=== PATIENT | female | born 1955 | race Caucasian/White ===

== ENCOUNTER 2024-01-17 10:21 | Outpatient (CLI) | payer MEDICARE, SELFPAY ==
--- NOTE | 2024-01-17 10:41 | ECG_ITS ---
Test Date: 2024-01-17 10:46:25 Measurements Intervals [place] Rate: 53 P: 30 AK: 144 QRS: -4 QRSD: 90 T: -8 QT: 404 QTc: 382 Interpretive Statements SINUS BRADYCARDIA POSSIBLE ANTERIOR MYOCARDIAL INFARCTION [30 ms Q WAVE IN V3/V4, OR R < 0.2 mV IN V4], PROBABLY OLD No previous ECG available for comparison Electronically Signed On 01-18-2024 15:49:54 CDT by Aram Williamson M.D.
== END 2024-01-17 10:22 | disposition home or self-care (01) ==
LOC: ANHSURGERY 10:26
PROVIDERS: PCP Family Medicine; Visit Provider Otolaryngology
DX: I10 Essential (primary) hypertension (principal)
CPT/HCPCS: 93005

== ENCOUNTER 2024-01-24 00:09 | Day surgery (SDC) | payer MEDICARE, SELFPAY ==
[2024-01-14 15:45] VITALS: BMI 27.2
--- NOTE | 2024-01-14 16:01 | PC.NURSE ---
Report to the Outpatient Waiting Room, entrance under the green pavilion located off [facility], at time __9:00AM on date ___01/24/24____. Planned Procedure Time: __11:00AM . Time changes happen often and if your time is changed the preop area will call you the afternoon before. - You and your visitor will be asked to self-screen and do not enter if you have any COVID symptoms. - A mask is optional within the hospital at this time. Patients may have clear liquids (water, carbonated beverages, clear teas, apple juice) until 3 hours prior to surgery with a maximum of 20 ounces. - No food from midnight until time of surgery. Take the following medications with a SIP of water the morning of surgery: ____NONE DO NOT STOP ANY OF YOUR OTHER PRESCRIPTION MEDICATIONS PRIOR TO SURGERY ?EXCEPT THE FOLLOWING Medications to discontinue per physician ___HOLD ALL VITAMINS/SUPPLEMENTS 3 DAYS PRE-OP PER ANESTHESIA Date to take last dose 01/20/24 Please no make-up, nail czech, hairspray, perfume, deodorant, or body powder the day of surgery. No jewelry (including any body piercings) or valuables the day of surgery, leave them at home. Please take a shower or bath the night before, or the morning of, surgery with an antibacterial soap. Wear comfortable, loose fitting clothing. - Jewelry must be removed prior to entering the operating room. Rings and piercings that are not removed may be cut off. - The hospital will not accept responsibility for valuables. - Please leave all valuables, including medications, at home the day of surgery. If you are going home after surgery, a licensed armored car driver must drive you home. - NO public transportation without another adult if you receive anesthesia. - We recommend that an adult stay with you for 24 hours following discharge. - We also recommend that you do not drive, make important decision, drink alcoholic beverages, or take any drugs that were not prescribed by your health care provider for at least 24 hours after your discharge time. Follow any additional instructions given to you from your surgeon. If you or anyone in your household have experienced Covid symptoms in the past week, please notify your surgeon or the nurse liaison at the phone number below for possible testing. Telephone instructions given to ____PATIENT and asked if any additional questions and then verbalized understanding. Patient advised to call surgeon office or pre surgery nurse liaison [phone] if any additional questions.
--- NOTE | 2024-01-23 08:13 | PM.IMHP ---
H&P: HPI History of Present Illness Date/Time: 01/23/24 08:13 Chief Complaint: Nasal polyps chronic sinusitis septal deviation turbinate hypertrophy Narrative: planned procedure Review of Systems Review of Systems: All systems reviewed & are unremarkable except as noted in HPI and below [facility] Past Medical History Medical History Bone spur (~2009) Carpal tunnel syndrome of left wrist (~1998) Carpal tunnel syndrome of left wrist (~2016) Carpal tunnel syndrome of right wrist (~1996) Hip replacement planned (~2014) Meniscal injury (~2011) Ulnar nerve injury (~2018) Surgical History Surgical History H/O: hysterectomy (~2002) Tubal ligation status (~1983) Family History Family History Father Malignant neoplasm of prostate Mother Diabetes mellitus Breast cancer Social History Social History Smoking status: Never smoker Alcohol intake: never Substance use: never Substance use type: does not use Do You Feel Safe in your Home?: Yes Lack of Transportation: No Lack of Food: Never True Current Housing: I Have Housing Concerned About Future Housing: No Difficulty Paying Gas/Electric Bills: No Currently Unemployed: No Education: Master's Degree or Higher Living arrangements: with family Additional living arrangements comments: [employer] Occupation/Education: retired Gender identity (if verbalized by the patient): Female Spiritual care concerns: No Meds Home Medications and Allergies Home Medications Medication Instructions Recorded Confirmed Type folic acid 1 mg tablet 1 mg PO DAILY 12/19/23 01/14/24 History lisinopril 20 mg tablet 20 mg PO HS 12/19/23 01/14/24 History multivitamin 1 tablet PO DAILY 12/19/23 01/14/24 History oxybutynin chloride 5 mg tablet 5 mg PO BID 12/19/23 01/14/24 History budesonide 0.25 mg/2 mL suspension 0.25 mg (2 mL) irrigation BID #120 12/20/23 01/14/24 Rx for nebulization mL lactobacillus combination no.9 4 4,000 mmu cells PO DAILY 12/20/23 01/14/24 History billion cell capsule (Adult 50 Plus Probiotic) methotrexate sodium 2.5 mg tablet 17 mg PO WEEKLY 01/14/24 01/14/24 History prednisone 5 mg tablet 5 mg PO . Daily #7 tabs 01/15/24 01/15/24 Rx Allergies Allergy/AdvReac Type Severity Reaction Status Date / Time celecoxib [From Celebrex] AdvReac Mild Rash Verified 01/14/24 15:41 Exam Narrative: chronic appearing sinuses septal deviation turbinate hypertrophy nasal polyps Assessment and Plan Assessment and plan (1) Nasal polyps: Code(s): J33.9 - Nasal polyp, unspecified Status: Acute Assessment and Plan: Plan OR for image guided endoscopic bilateral maxillary antrostomies total ethmoidectomies frontal sinusotomies right-sided sphenoidotomy endoscopic assisted septoplasty inferior turbinate reduction with outfracture bilaterally possible bilateral middle turbinectomies. Risks discussed bleeding infection damage to surrounding structures need further procedures change in vision total blindness damage to vision CSF leak brain brain damage postoperative bleeding infection related to any medical comorbidities. Septal perforation. Failure to resolve symptoms. Need for prolonged follow-up routine follow-up. Inherent risk of medications that will be prescribed inherent risk of narcotic use. Time off work time off school. Patient voiced understanding these risks and agreed. Also damage to any structure of the clavicles by myself. Damage to any structures during induction and maintenance of anesthesia including vocal cord paralysis. (2) Chronic sinusitis: Code(s): J32.9 - Chronic sinusitis, unspecified Status: Acute (3) Nasal septal deviation: Code(s): J34.2 -
[2024-01-24] VITALS (13 sets, daily range): BP systolic 133–191; BP diastolic 79–98; PULSE 56–101; RESP 12–18; TEMP 36.3; O2SAT 96–100
--- NOTE | 2024-01-24 07:15 | WPDHPUPDATE1 ---
History and Physical Update Update Date/Time: 01/24/24 07:15 History and Physical has been reviewed, including an updated exam of the patient. There are NO changes in the patient's condition. Risks, benefits, and alternatives have been discussed and questions answered. Patient agrees to proceed with procedure.
--- NOTE | 2024-01-24 09:46 | WPDANESEPPF ---
Anes - Initial Pre Proc Eval Procedure: Operation Date: 01/24/24 10:30 Proposed Procedures p Image Guided Endoscopic Bilateral Maxillary Antrostomy, Bilateral Total Ethmoidectomy, Bilateral Frontal Sinusotomy, Right Sided Sphenoidotomy, Bilateral Inferior Turbinate Reduction with Outfracture, Possible Bilateral Middle Turbinectomy - Ace Beltran MD s Endoscopic Assisted Septoplasty - Ace Beltran MD Date/Time: 01/24/24 09:46 Surgeon: Ace Beltran MD Pre Op Diagnosis: Chr Sinusitis, Septal Dev Patient Data Age: 68 Gender: F Height: 1.7 m Weight: 81.9 kg Last Vital Signs Temp 97.3 F L 01/24/24 09:34 Pulse 56 L 01/24/24 09:34 Resp 18 01/24/24 09:34 BP 166/98 H 01/24/24 09:34 Pulse Ox 100 01/24/24 09:34 O2 Del Method Room Air 01/24/24 09:34 Allergies Allergy/AdvReac Type Severity Reaction Status Date / Time celecoxib [From Celebrex] AdvReac Mild Rash Verified 01/24/24 08:57 Home Medications Medication Instructions Recorded Confirmed Type folic acid 1 mg tablet 1 mg PO DAILY 12/19/23 01/14/24 History lisinopril 20 mg tablet 20 mg PO HS 12/19/23 01/14/24 History multivitamin 1 tablet PO DAILY 12/19/23 01/14/24 History oxybutynin chloride 5 mg tablet 5 mg PO BID 12/19/23 01/14/24 History budesonide 0.25 mg/2 mL suspension 0.25 mg (2 mL) irrigation BID #120 12/20/23 01/14/24 Rx for nebulization mL lactobacillus combination no.9 4 4,000 mmu cells PO DAILY 12/20/23 01/14/24 History billion cell capsule (Adult 50 Plus Probiotic) methotrexate sodium 2.5 mg tablet 17 mg PO WEEKLY 01/14/24 01/14/24 History prednisone 5 mg tablet 5 mg PO . Daily #7 tabs 01/15/24 01/15/24 Rx Patient hx anesthesia problems: none Family hx anesthesia problems: none Results Review: All pre-operative results and documents have been reviewed as part of the pre-operative evaluation. [facility] Past Medical History Medical History Bone spur (~2009) Carpal tunnel syndrome of left wrist (~1998) Carpal tunnel syndrome of left wrist (~2016) Carpal tunnel syndrome of right wrist (~1996) Hip replacement planned (~2014) Meniscal injury (~2011) Ulnar nerve injury (~2018) Surgical History Surgical History H/O: hysterectomy (~2002) Tubal ligation status (~1983) Family History Family History Father Malignant neoplasm of prostate Mother Diabetes mellitus Breast cancer Social History Social History Smoking status: Never smoker Alcohol intake: never Substance use: never Substance use type: does not use Do You Feel Safe in your Home?: Yes Lack of Transportation: No Lack of Food: Never True Current Housing: I Have Housing Concerned About Future Housing: No Difficulty Paying Gas/Electric Bills: No Currently Unemployed: No Education: Master's Degree or Higher Living arrangements: with family Additional living arrangements comments: [employer] Occupation/Education: retired Gender identity (if verbalized by the patient): Female Spiritual care concerns: No Anes - Eval Final PreProcedure Day of Procedure 01/24/24 09:46 Patient weight: overweight Heart: regular rate and rhythm Lungs: clear to auscultation Airway: Mallampati scale and special considerations (Missing teeth in post, lower aspect. ) Neurological: alert and oriented Last oral intake: >/= 8 hours ASA classification: II Emergent: no Anesthetic plan: proceed Anesthesia type and monitoring: general ETT and standard monitoring Results Review: All pre-operative results and documents have been reviewed as part of the pre-operative evaluation. HTN, pt walks on treadmill 1.5 miles, 3 x weekly, no cp or sob. Informed Consent: The patient's anesthetic plan and its attendant risks
[2024-01-24] MEDS: ceFAZolin 2 GM/D5W 50 ML 2 GM/50 ML BAG IVPB (10:45)
[2024-01-24] MEDS: LIDO 1%/EPINEPHRINE 1:100,000 50 ML VIAL INFILTRATE (11:02)
[2024-01-24] MEDS: OXYMETAZOLINE HCL 0.05% NAS 15 ML BTL (*BKC) 1 SPRAY NASAL (11:15)
[2024-01-24] MEDS: LACTATED RINGERS 1,000 ML 30 ML IV CONT ×3 (14:04)
--- NOTE | 2024-01-24 14:41 | P.OP_ITS ---
Procedure Note - Detailed Date of Procedure 01/24/24 Pre-op Diagnosis Chr Sinusitis, Septal Dev, allergic fungal sinusitis Post-op Diagnosis Same Procedure Performed bilateral image guided endoscopic maxillary antrostomies total ethmoidectomies frontal sinusotomies with propel stent placement. Right-sided sphenoidotomy endoscopic. Endoscopic assisted septoplasty . right maxillary antrostomy was with tissue removal. Surgeon Ace Beltran MD Anesthesia General Indications See above Findings joint fungal ball right maxillary sinus polypoid polyps throughout all the sinuses edematous tissue on the floor left max consistent with the implant is. Deviated septum high necessitating high septoplasty. Description of Procedure Patient identified consent verified preop. Patient brought to the operating room. Time-out performed. General anesthesia induced endotracheal tube secured. Patient prepped draped position procedure confirmed 2nd time-out performed. Image guidance initiated confirmed Afrin-soaked pledgets placed for 5 minutes then removed. 0 degree endoscope utilized. High septal deviation. 15 cc 1% lidocaine 1 100,000 parts epinephrine checked in the nasal septum. Left-sided Lacrosse incision made. Left nasal septal flap elevated no tear right nasal septal flap elevated small tear no concomitant tear on the left side. Deviated septum removed Jame Jamil forceps and Magnus forceps. Septum rinsed out for interrupted 5 0 fast sutures utilized to close the Lacrosse incision. Is hard to get it to approximate nicely on the inferior portion. Maxillary antrostomies performed with backbiter double ball tip probe straight through cut all under image guidance no damage to orbit. This was after the middle turbinates were medialized. Right maxillary sinus was full of fungal debris this took quite a while to remove. Ethmoidectomies total in nature were performed with Kerrison micro and straight through cut. Great care was taken to not injure the anterior ethmoidal artery skull base orbit or septum. Frontal sinusotomies performed under image guidance with [employer] frontal sinus suction seeker. Great care was taken to not injure the skull base or orbit or septum. Propel stents were placed. Wound copiously irrigated with sterile normal saline. Right sphenoidotomy performed under image guidance with sphenoid punch and Grawn. Nova pack was placed bilaterally. Valente splints placed sutured anteriorly using a 3-0 mattress nylon suture. Great care was taken to ensure the Valente splints at laterally to the middle turbinates. Total blood loss 100 cc. I performed all dictated portions of procedure no complication care the patient given Anesthesiology. Patient taken to PACU. Estimated Blood Loss 100 Drains No Packing Yes (betsy) Pathology None sent Complications No immediate complications Condition Stable Disposition PACU [facility] Billing Surgery - Charge Forward: Surgery Billing
[2024-01-24] MEDS: ONDANSETRON INJ 4 MG/2 ML VIAL IV PUSH (15:05)
[2024-01-24] MEDS: hydrALAZINE HCL 20 MG/ML VIAL 10 MG IV PUSH (16:42)
[2024-01-24] MEDS: diphenhydrAMINE HCl INJ 50 MG/ML VIAL 6.25 MG IV PUSH (16:50)
== END 2024-01-24 18:04 | disposition home or self-care (01) ==
PROVIDERS: PCP Family Medicine; Visit Provider Otolaryngology
PROC: (CPT 31256; principal; 2024-01-24 10:30)
PROC: (CPT 30520; 2024-01-24 10:30)
DX: J34.2 Deviated nasal septum (principal); J32.9 Chronic sinusitis, unspecified; J33.8 Other polyp of sinus; J34.3 Hypertrophy of nasal turbinates; Z79.52 Long term (current) use of systemic steroids; Z98.890 Other specified postprocedural states; Z98.51 Tubal ligation status; Z80.42 Family history of malignant neoplasm of prostate; Z80.3 Family history of malignant neoplasm of breast
CPT/HCPCS: 31256; 31267; 31253; 31287; 61782; 30520; A9270; C2625; J0360; J0690; J1100; J1170; J1200; J1596; J2405; J2704; J3010; J7050; J7120